=== PATIENT | male | born 1985 | race American Indian/Alaskan Native ===

== ENCOUNTER 2017-03-24 18:21 | Emergency (ER) | payer OTHER ==
--- NOTE | 2017-03-24 21:05 | Cat Scan Report ---
FINAL REPORT PROCEDURE: CT HEAD/BRAIN WO CON TECHNIQUE: Computerized tomography of the head was performed without contrast material. HISTORY: headache, dizziness, neck pain COMPARISON: No prior studies are available for comparison. FINDINGS: Skull and scalp: Normal. Paranasal sinuses: Normal. Ventricles and subarachnoid spaces: Normal. Cerebrum: No evidence of hemorrhage, acute infarction or mass . Cerebellum and brainstem: No evidence of hemorrhage, acute infarction or mass. Vasculature: Normal. Comments: None. IMPRESSION: Normal Examination
--- NOTE | 2017-03-24 21:23 | Cat Scan Report ---
FINAL REPORT PROCEDURE: CT CERVICAL SPINE WO CON TECHNIQUE: Computerized tomography of the cervical spine was performed from the skull base to T1 without contrast material. HISTORY: headache, neck pain, dizziness COMPARISON: No prior studies are available for comparison. FINDINGS: C1-2: No significant abnormality. C2-3: No significant abnormality. C3-4: No significant abnormality. C4-5: No significant abnormality. C5-6: No significant abnormality. C6-7: No significant abnormality. C7-T1: No significant abnormality. Other: No additional findings. IMPRESSION: No significant abnormality.
[2017-03-24 21:31] LABS: Hematocrit 46.1 % (35.5-45.6); Hemoglobin 15.8 gm/dl (11.8-15.2); Mean Corpuscular HGB Conc 34 % (32-34); Mean Corpuscular Hemoglobin 33 pg (28-32); Mean Corpuscular Volume 95 fl (84-94); Platelet Count 188 K/mm3 (140-440); Red Blood Count 4.84 M/mm3 (3.65-5.03); Red Cell Distribution Width 12.8 % (13.2-15.2)
[2017-03-24 21:48] LABS: Anion Gap 21 mmol/L; Blood Urea Nitrogen 11 mg/dL (9-20); Calcium 9.8 mg/dL (8.4-10.2); Carbon Dioxide 24 mmol/L (22-30); Chloride 99.7 mmol/L (98-107); Glucose 81 mg/dL (75-100); Potassium 4.1 mmol/L (3.6-5.0); Sodium 141 mmol/L (137-145)
[2017-03-24 22:09] LABS: Basophils % (Manual) 0 % (0.0-1.8); Blastocytes % (Manual) 0 %; RBC Morphology Normal
[2017-03-24 22:10] LABS: Diff Status Complete
[2017-03-24 22:17] LABS: Urine Drugs of Abuse Note Disclamer
[2017-03-24 22:30] LABS: Bilirubin,Urine NEG (Negative); Blood,Urine NEG (Negative); Ketones,Urine 20 mg/dL (Negative); Leukocyte Esterase,Urine TR (Negative); Mucus,Urine 2+ /HPF; Nitrite,Urine NEG (Negative)
[2017-03-25] MEDS ORDERED: NORCO 5/325 PO ONE (06:28)
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
[2017-03-25 06:55] VITALS: BP 119/70
--- NOTE | 2017-03-25 07:48 | XRay Report ---
ROUTINE CHEST, TWO VIEWS: HISTORY: Shortness of breath. The trachea, heart, mediastinal contour, lung earl and bony thorax are unremarkable. IMPRESSION: Unremarkable chest x-ray.
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
== END 2017-03-25 06:55 | disposition home or self-care (01) ==
LOC: ED 18:21
DX: M25.531 Pain in right wrist (principal); M54.2 Cervicalgia; R51 Headache; Z91.030 Bee allergy status; R42 Dizziness and giddiness; F17.200 Nicotine dependence, unspecified, uncomplicated; V49.49XA Driver injured in collision with other motor vehicles in traffic accident, initial encounter; Y92.488 Other paved roadways as the place of occurrence of the external cause; Y93.89 Activity, other specified; Y99.9 Unspecified external cause status
CPT/HCPCS: 36415; 70450; 71020; 72125; 80048; 80307; 81001; 84484; 85007; 85025; 93005; 93010